=== PATIENT | female | born 1995 | race American Indian/Alaskan Native ===

== ENCOUNTER 2018-09-29 20:24 | Emergency (ER) | payer MEDICAID ==
--- NOTE | 2018-09-29 21:17 | Emergency Department Report ---
Chief Complaint: Nausea/Vomiting/Diarrhea Stated Complaint: vomiting with Time Seen by Provider: 09/29/18 21:15 - HPI History of Present Illness: n/v with epigastric pain consistent with gerd. pos 2/8 pmh none rx none psh none vss no fever no vag bleeding mse completed - Exam Vital Signs: Vital Signs 09/29/18 21:03 Temperature 98.4 F Pulse Rate 78 Respiratory 18 Rate Blood Pressure 116/53 O2 Sat by Pulse 100 Oximetry MSE screening note: Focused history and physical exam performed. Due to findings the following was ordered: ED Disposition for MSE Condition: Stable
[2018-09-29 21:30] LABS: Hematocrit 35.5 % (30.3-42.9); Hemoglobin 12.5 gm/dl (10.1-14.3); Mean Corpuscular HGB Conc 35 % (30-34); Mean Corpuscular Volume 84 fl (79-97); Platelet Count 272 K/mm3 (140-440); Red Blood Count 4.22 M/mm3 (3.65-5.03); Red Cell Distribution Width 12.7 % (13.2-15.2)
[2018-09-29 21:46] LABS: BUN/Creatinine Ratio 14; Blood Urea Nitrogen 10 mg/dL (7-17); Calcium 9.5 mg/dL (8.4-10.2); Hemolysis Index 7
[2018-09-29 22:21] LABS: Bilirubin,Urine NEG (Negative); Blood,Urine NEG (Negative); Color,Urine Yellow (Yellow); Mucus,Urine FEW /HPF; Protein,Urine <15 mg/dL mg/dL (Negative)
[2018-09-29] MEDS ORDERED: REGLAN IV ONE (23:38)
[2018-09-29] MEDS ORDERED: TYLENOL PO ONE (23:38)
[2018-09-29] MEDS ORDERED: NACL 0.9% 1000 ML 1,000 ML IV ONE (23:38)
--- NOTE | 2018-09-29 23:47 | Emergency Department Report ---
ED HPI - General Chief complaint: Nausea/Vomiting/Diarrhea Stated complaint: vomiting with Time Seen by Provider: 09/29/18 21:15 Source: patient Mode of arrival: Ambulatory Limitations: No Limitations - History of Present Illness Initial comments: This is a 23-year-old female nontoxic, well nourished in appearance, no acute signs of distress presents to the ED with c/o of pelvic pain and nausea vomiting. Patient denies any vaginal bleeding or vaginal discharge. Patient denies any upper abdominal pain. Patient denies any vaginal discharge or foul odor. Patient denies any chest pain, shortness of breathe, fever, chills, hea dache, stiff neck, numbness, tingling. Patient denies any urinary symptoms. Patient denies any allergies. MD Complaint: other (pelvic pain with nausea vomiting) -: week(s) Location: pelvis Radiation: none Severity: mild Severity scale (0 -10): 3 Quality: cramping, aching Consistency: constant Improves with: none Worsens with: none Associated symptoms: nausea/vomiting. denies: vaginal bleeding, vaginal discharge, abdominal pain, dysuria, headache, vision changes, malaise, dysparuenia, rash, seizure, shortness of breath, syncope, weakness - Related Data Previous Rx's Medication Instructions Recorded Last Taken Type Acetaminophen 500 mg PO Q8H PRN #20 tablet 09/29/18 Unknown Rx Metoclopramide [Reglan] 10 mg PO BID PRN #20 tab 09/29/18 Unknown Rx 21/Iron Fu/Folic Acid 1 each PO DAILY #30 tablet 09/29/18 Unknown Rx [ Complete Caplet] Allergies Allergy/AdvReac Type Severity Reaction Status Date / Time No Known Allergies Allergy Verified 09/29/18 20:36 ED Review of Systems ROS: Stated complaint: vomiting with Other details as noted in HPI Constitutional: denies: chills, fever Eyes: denies: eye pain, eye discharge, vision change ENT: denies: ear pain, throat pain Respiratory: denies: cough, shortness of breath, wheezing Cardiovascular: denies: chest pain, palpitations Endocrine: no symptoms reported Gastrointestinal: nausea, vomiting, other (pelvic pain). denies: abdominal pain, diarrhea Genitourinary: denies: urgency, dysuria, discharge Musculoskeletal: denies: back pain, joint swelling, arthralgia Skin: denies: rash, lesions Neurological: denies: headache, weakness, paresthesias Psychiatric: denies: anxiety, depression Hematological/Lymphatic: denies: easy bleeding, easy bruising ED Past Medical Hx - Past Medical History Previous Medical History?: No - Surgical History Past Surgical History?: No - Social History Smoking Status: Never Smoker Substance Use Type: None - Medications Home Medications: Home Medications Medication Instructions Recorded Confirmed Last Taken Type Acetaminophen 500 mg PO Q8H PRN #20 tablet 09/29/18 Unknown Rx Metoclopramide [Reglan] 10 mg PO BID PRN #20 tab 09/29/18 Unknown Rx 21/Iron Fu/Folic Acid 1 each PO DAILY #30 tablet 09/29/18 Unknown Rx [ Complete Caplet] ED Physical Exam - General Limitations: No Limitations General appearance: alert, in no apparent distress - Head Head exam: Present: atraumatic, normocephalic - Eye Eye exam: Present: normal appearance - Neck Neck exam: Present: normal inspection, full ROM. Absent: tenderness, meningismus, lymphadenopathy - Respiratory Respiratory exam: Present: normal lung sounds bilaterally. Absent: respiratory distress, wheezes, rales, rhonchi, stridor, chest wall tenderness, accessory muscle use, decreased breath sounds, prolonged expiratory - Cardiovascular Cardiovascular Exam: Present: regular rate, normal rhythm, normal heart sounds. Absent: bradycardia, tachycardia, irregular rhythm, systolic murmur, diastolic murmur, rubs, gallop - GI/Abdominal GI/Abdominal exam: Present: soft, normal bowel sounds. Absent: distended, tenderness, guarding, rebound, rigid, diminished bowel sounds - Expanded GI/Abdominal Exam Expanded GI/Abdominal exam: Absent: psoas sign, Lam's sign, Rovsing's sign, tenderness at Mcburney's Point, ascites - Extremities Exam Extremities exam: Present: normal inspection, full ROM, normal capillary refill - Back Exam Back exam: Present: normal inspection, full ROM. Absent: tenderness, CVA tenderness (R), CVA tenderness (L), muscle spasm, paraspinal tenderness, vertebr al tenderness, rash noted - Neurological Exam Neurological exam: Present: alert, oriented X3 - Psychiatric Psychiatric exam: Present: normal affect, normal mood - Skin Skin exam: Present: warm, dry, intact, normal color. Absent: rash ED Course Vital Signs 09/29/18 09/29/18 21:03 21:15 Temperature 98.4 F 98.4 F Pulse Rate 78 79 Respiratory 18 18 Rate Blood Pressure 116/53 116/53 O2 Sat by Pulse 100 100 Oximetry - Reevaluation(s) Reevaluation #1: 09/29/18 23:45 Patient is speaking in full sentences with no signs of distress noted. ED Medical Decision Making - Lab Data Result diagrams: 09/29/18 21:23 09/29/18 21:23 - Medical Decision Making This is a 23-year-old female presents with UTI, pelvic pain with and hyperemesis . Patient is stable and was examined by me. Normal abdominal exam. US OB obtained and dictated by the radiologist. Ua obtained. Quantative serum test obtained. Patient notified of the US report with no questions noted by the patient. Patient received medical treatment in the ER and stated nausea vomiting has subsided. A by mouth challenge has been obtained and patient Tylenol and well with no vomiting. Patient was instructed f/u with [facility] in 3-5 days to follow up with a [facility]. Labs within normal limits. Patient was given strict precautions and education on ectopic . At time of discharge, the patient does not seem toxic or ill in appearance. No acute signs of distress noted. Patient agrees to discharge treatment plan of care. No further questions noted by the patient. Critical care attestation.: If time is entered above; I have spent that time in minutes in the direct care of this critically ill patient, excluding procedure time. ED Disposition Clinical Impression: Pelvic pain during , Hyperemesis gravidarum UTI (urinary tract infection) Qualifiers: Urinary tract infection type: site unspecified Hematuria presence: without hematuria Qualified Code(s): N39.0 - Urinary tract infection, site not specified Disposition: -01 TO HOME OR SELFCARE Is pt being admited?: No Does the pt Need Aspirin: No Condition: Stable Instructions: (ED), Hyperemesis Gravidarum (ED) Additional Instructions: Follow-up with a OBGYN doctor in 3-5 days or if symptoms worsen and continue return to emergency room as soon as possible. Prescriptions: Acetaminophen 500 mg PO Q8H PRN #20 tablet PRN Reason: Pain , Severe (7-10) 21/Iron Fu/Folic Acid [ Complete Caplet] 1 each PO DAILY #30 tablet Metoclopramide [Reglan] 10 mg PO BID PRN #20 tab PRN Reason: Nausea Referrals: ANA MOSS MD [Primary Care Provider] - 3-5 Days [facility] [Referring] - 3-5 Days MARSHA BURT MD [Staff Physician] - 3-5 Days [facility] [Provider Group] - 3-5 Days Forms: Work/School Release Form(ED)
--- NOTE | 2018-09-30 00:35 | Ultrasound Report ---
PROCEDURE: US OB <= 14 WEEKS FETUS TECHNIQUE: Transabdominal imaging was obtained of the pelvis. HISTORY: pelvic pain COMPARISONS: None FINDINGS: The uterus is anteverted measuring 9 x 6.2 x 7.0 cm. Within the uterus is a well formed gestational s ac which contains a pole and yolk sac. The crown-rump length is 8.7 mm corresponding to a 6 wee k 6 day IUP. The heart rate is 134 BPM. There is a small subchorionic hemorrhage. There is mini mal free fluid in the pelvis. The maternal ovaries are normal in size contour and echotexture. The ri ght ovary measures 2.5 x 1.4 x 2.2 cm. The left ovary measures 3.5 x 1.6 x 3.1 cm. The blood flow is normal to both ovaries. IMPRESSION: Single viable IUP, 6 weeks 6 days. The heart rate is 134 BPM. Very small subchorionic hemorrhage.. This document is electronically signed by Kurt Mayer MD., September 30 2018 12:33:43 AM ET
--- NOTE | 2018-09-30 00:42 | Ultrasound Report ---
PROCEDURE: US OB TRANSVAGINAL TECHNIQUE: Transvaginal imaging was obtained of the pelvis. HISTORY: pelvic pain COMPARISONS: None FINDINGS: The uterus is anteverted measuring 9 cm x 6.2 cm x 7 cm. Within the uterus is a well-formed gestation al sac which contains a yolk sac and pole. The crown-rump length is 8.7 mm corresponding to a 6 week 6 day IUP. The heart rate is 134 BPM. There is a very small subchorionic hemorrhage. Ther e is minimal free fluid cul-de-sac. Both ovaries are appropriate in size contour blood flow and echot exture. The right ovary measures 2.5 x 1.4 x 2.2 cm. The left ovary measures 3.5 x 1.6 x 3.1 cm. IMPRESSION: Single viable IUP, 6 weeks 6 days. The heart rate is 134 BPM. Very small subchorionic hemorrhage.. This document is electronically signed by Kurt Mayer MD., September 30 2018 12:40:29 AM ET
[2018-09-30 01:27] VITALS: BP 109/53
== END 2018-09-30 01:26 | disposition home or self-care (01) ==
LOC: ED 20:24
DX: O23.41 Unspecified infection of urinary tract in pregnancy, first trimester (principal); O21.0 Mild hyperemesis gravidarum; R10.2 Pelvic and perineal pain; Z3A.01 Less than 8 weeks gestation of pregnancy
CPT/HCPCS: 36415; 76801; 76817; 80048; 81001; 84702; 85027; 96361; 96374; 99284; J2765; J7030

== ENCOUNTER 2021-12-03 08:09 | Emergency (ER) | payer MEDICAID ==
--- NOTE | 2021-12-03 09:03 | XRay Report ---
CHEST 2 VIEWS INDICATION: SOB with cough. COMPARISON: None FINDINGS: SUPPORT DEVICES: None. HEART: Within normal limits. LUNGS/PLEURA: No acute air space or interstitial disease. No pneumothorax. ADDITIONAL FINDINGS: None. IMPRESSION: 1. No acute findings. Signer Name: Marcial Cedeno MD Signed: 12/03/2021 8:58 AM Workstation Name: [id number]
[2021-12-03 09:24] LABS: Basophils # (Auto) 0.1 K/mm3 (0.0-0.1); Basophils % (Auto) 0.5 % (0.0-1.8); Eosinophils # (Auto) 0.3 K/mm3 (0.0-0.4); Eosinophils % (Auto) 2.1 % (0.0-4.3); Hematocrit 36.1 % (30.3-42.9); Hemoglobin 12.3 gm/dl (10.1-14.3); Lymphocytes # (Auto) 1.7 K/mm3 (1.2-5.4); Lymphocytes % (Auto) 13.8 % (13.4-35.0); Mean Corpuscular HGB Conc 34 % (30-34); Mean Corpuscular Volume 84 fl (79-97); Monocytes # (Auto) 0.6 K/mm3 (0.0-0.8); Monocytes % (Auto) 4.6 % (0.0-7.3); Platelet Count 280 K/mm3 (140-440)
[2021-12-03 09:38] LABS: Alanine Aminotransferase 16 units/L (7-56); Albumin 3.9 g/dL (3.9-5); Blood Urea Nitrogen 10 mg/dL (7-17); Calcium 9.2 mg/dL (8.4-10.2); Hemolysis Index 2
[2021-12-03 09:49] LABS: BUN/Creatinine Ratio 14
[2021-12-03] MEDS ORDERED: AZITHROMYCIN/NS 500 MG/250 ML 500 MG/250 ML BAG IV ONE (11:29)
[2021-12-03] MEDS ORDERED: methylPREDNISolone Sod Succinate 125 MG/2 ML INJ IV ONE (11:29)
[2021-12-03] MEDS ORDERED: IPRATROPIUM 0.02% NEBU 2.5 ML IH ONE (11:29)
[2021-12-03] MEDS ORDERED: ALBUTEROL 2.5 MG/3 ML NEBU IH ONE (11:29)
--- NOTE | 2021-12-03 12:57 | Emergency Department Report ---
ED Shortness of Breath HPI - General Chief Complaint: Dyspnea/Respdistress Stated Complaint: ANTONY/ASTHMA Time Seen by Provider: 12/03/21 11:11 Source: patient Mode of arrival: Ambulatory Limitations: No Limitations - History of Present Illness Initial Comments: Pt reports SOB with productive cough since yesterday. SPO2 of 95% MD Complaint: shortness of breath, cough -: Gradual, hour(s) Improves With: rest Worsens With: exertion - Related Data Home Oxygen Therapy: No Previous Rx's Medication Instructions Recorded Last Taken Type Acetaminophen 500 mg PO Q8H PRN #20 tablet 09/29/18 Unknown Rx Metoclopramide [Reglan] 10 mg PO BID PRN #20 tab 09/29/18 Unknown Rx 21/Iron Fu/Folic Acid 1 each PO DAILY #30 tablet 09/29/18 Unknown Rx [ Complete Caplet] Amoxicillin [Trimox CAP] 500 mg PO Q8H #30 capsule 02/04/20 Unknown Rx Lidocaine Viscous 2% 5 ml MM Q3H PRN #120 udc 02/04/20 Unknown Rx Albuterol Mdi (or & Nicu Only) 2 puff IH QID PRN #8.5 gram 12/03/21 Unknown Rx [ProAir HFA Inhaler] Azithromycin [Zithromax Z-CYNTHIA] 250 mg PO DAILY #6 12/03/21 Unknown Rx Brompheniramine/Pseudoephed/Dm 5 ml PO Q6HR PRN #120 syrup 12/03/21 Unknown Rx [Bromfed Dm Cough Syrup] methylPREDNISolone [Medrol 4MG 4 mg PO DAILY #1 12/03/21 Unknown Rx DOSEPAK (21 tabs)] Allergies Allergy/AdvReac Type Severity Reaction Status Date / Time No Known Allergies Allergy Verified 09/29/18 20:36 ED Review of Systems ROS: Stated complaint: ANTONY/ASTHMA Other details as noted in HPI Constitutional: denies: chills, fever Eyes: denies: eye pain, eye discharge, vision change ENT: denies: ear pain, throat pain Respiratory: denies: cough, shortness of breath, wheezing Cardiovascular: denies: chest pain, palpitations Endocrine: no symptoms reported Gastrointestinal: denies: abdominal pain, nausea, diarrhea Genitourinary: denies: urgency, dysuria, discharge Musculoskeletal: denies: back pain, joint swelling, arthralgia Skin: denies: rash, lesions Neurological: denies: headache, weakness, paresthesias Psychiatric: denies: anxiety, depression Hematological/Lymphatic: denies: easy bleeding, easy bruising ED Past Medical Hx - Past Medical History Previous Medical History?: No - Surgical History Past Surgical History?: No - Social History Smoking Status: Former Smoker Substance Use Type: None - Medications Home Medications: Home Medications Medication Instructions Recorded Confirmed Last Taken Type Acetaminophen 500 mg PO Q8H PRN #20 tablet 09/29/18 Unknown Rx Metoclopramide [Reglan] 10 mg PO BID PRN #20 tab 09/29/18 Unknown Rx 21/Iron Fu/Folic Acid 1 each PO DAILY #30 tablet 09/29/18 Unknown Rx [ Complete Caplet] Amoxicillin [Trimox CAP] 500 mg PO Q8H #30 capsule 02/04/20 Unknown Rx Lidocaine Viscous 2% 5 ml MM Q3H PRN #120 udc 02/04/20 Unknown Rx Albuterol Mdi (or & Nicu Only) 2 puff IH QID PRN #8.5 gram 12/03/21 Unknown Rx [ProAir HFA Inhaler] Azithromycin [Zithromax Z-CYNTHIA] 250 mg PO DAILY #6 12/03/21 Unknown Rx Brompheniramine/Pseudoephed/Dm 5 ml PO Q6HR PRN #120 syrup 12/03/21 Unknown Rx [Bromfed Dm Cough Syrup] methylPREDNISolone [Medrol 4MG 4 mg PO DAILY #1 12/03/21 Unknown Rx DOSEPAK (21 tabs)] ED Physical Exam - General Limitations: No Limitations General appearance: alert, in no apparent distress - Head Head exam: Present: atraumatic, normocephalic - Eye Eye exam: Present: normal appearance - ENT ENT exam: Present: mucous membranes moist - Neck Neck exam: Present: normal inspection - Respiratory Respiratory exam: Present: normal lung sounds bilaterally, wheezes, rhonchi. Absent: respiratory distress - Cardiovascular Cardiovascular Exam: Present: regular rate, normal rhythm. Absent: systolic mur mur, diastolic murmur, rubs, gallop - GI/Abdominal GI/Abdominal exam: Present: soft, normal bowel sounds - Extremities Exam Extremities exam: Present: normal inspection - Back Exam Back exam: Present: normal inspection - Neurological Exam Neurological exam: Present: alert, oriented X3 - Psychiatric Psychiatric exam: Present: normal affect, normal mood - Skin Skin exam: Present: warm, dry, intact, normal color. Absent: rash ED Course Vital Signs 12/03/21 12/03/21 08:15 11:59 Temperature 99.1 F Pulse Rate 99 H 85 Respiratory 26 H 19 Rate Blood Pressure 137/74 Blood Pressure 125/70 [Right] O2 Sat by Pulse 93 100 Oximetry ED Medical Decision Making - Lab Data Result diagrams: 12/03/21 08:55 12/03/21 08:55 - Radiology Data Radiology results: report reviewed, image reviewed - Medical Decision Making rt given steriods feels better o2 sat 100 on RA no distress Critical care attestation.: If time is entered above; I have spent that time in minutes in the direct care of this critically ill patient, excluding procedure time. ED Disposition Clinical Impression: SOB (shortness of breath), Acute bronchitis Disposition: 01 HOME / SELF CARE / HOMELESS Is pt being admited?: No Does the pt Need Aspirin: No Condition: Stable Instructions: Acute Bronchitis (ED), Acute Bronchitis, Adult, [id number] [facility] [Other] - 3-5 Days
[2021-12-03 14:51] VITALS: BP 125/69
== END 2021-12-03 14:50 | disposition home or self-care (01) ==
LOC: ED 08:09
DX: R06.02 Shortness of breath (principal); J20.9 Acute bronchitis, unspecified; Z87.891 Personal history of nicotine dependence
CPT/HCPCS: 36415; 71046; 80053; 83880; 84484; 85025; 93005; 94640; 96365; 96375; 99284; J0456; J2930